=== PATIENT | male | born 1980 | race Two or more races ===

== ENCOUNTER 2022-02-08 15:10 | Emergency (ER) | payer OTHER ==
[~2022-02-08] VITALS: Ht 165.1 cm; Wt 94.3 kg
[2022-02-08] MEDS ORDERED: CIPRO500 MG PO (19:02)
== END 2022-02-08 19:50 | disposition home or self-care (01) ==
LOC: ER 15:10
DX: S69.82XA Other specified injuries of left wrist, hand and finger(s), initial encounter (principal); X58.XXXA Exposure to other specified factors, initial encounter; Y93.89 Activity, other specified; Y92.9 Unspecified place or not applicable; Y99.9 Unspecified external cause status